=== PATIENT | female | born 1980 | race Caucasian/White ===

== ENCOUNTER → 2021-02-08 | Outpatient (CLI) | payer OTHER ==
[~2021-02-08] MED LIST: CEPH500C PO; NAPR550T2 PO; OXYC5TAB71 PO; SULF-222 PO; TRAM50TA2 PO
--- NOTE | 2021-02-08 16:35 | Diagnostic Imaging Report ---
INDICATION: Routine screening. COMPARISON: No prior mammograms are available for comparison. This is a baseline study. TECHNIQUE: 2D and 3D bilateral screening mammography was performed with CAD. FINDINGS: Scattered fibroglandular densities are identified bilaterally. There is a prominent density in the lower central right breast. Additional views would be recommended. The left breast is unremarkable. No malignant-appearing microcalcifications are seen. The axillae are unremarkable. IMPRESSION: Right breast density. Additional views are recommended for further evaluation. ACR BI-RADS Category 0: Incomplete. (Needs additional imaging evaluation). Result letter will be mailed to the patient. Note: At least 10% of breast cancer is not imaged by mammography. Dictated by: Dictated on workstation # [id number]
== END ==
LOC: RAD 15:45
PROVIDERS: ATTEND Obstetrics & Gynecology
DX: Z12.31 Encounter for screening mammogram for malignant neoplasm of breast (principal); R92.8 Other abnormal and inconclusive findings on diagnostic imaging of breast
CPT/HCPCS: 77063; 77067

== ENCOUNTER → 2021-02-15 | Outpatient (CLI) | payer OTHER ==
--- NOTE | 2021-02-15 11:13 | Diagnostic Imaging Report ---
EXAMINATION: Unilateral diagnostic right mammogram with CAD. INDICATION: Abnormal screening mammogram. FINDINGS: The baseline screening mammogram performed on 02/08/2021 noted a prominent density in the lower central right breast. The compression views of this area in the CC and MLO projections show that the density persists. This finding is also somewhat visualized on the true lateral view. This could represent either a solid or cystic mass. I would recommend that ultrasound be performed for further study. IMPRESSION: Ultrasound would be recommended for further evaluation of the nodular density in the 6 o'clock position of the right breast. ACR BI-RADS Category 0: Incomplete. (Needs additional imaging evaluation). Result letter will be mailed to the patient. Note: At least 10% of breast cancer is not imaged by mammography. Dictated by: Dictated on workstation # [id number]
--- NOTE | 2021-02-15 12:36 | Diagnostic Imaging Report ---
EXAMINATION: Ultrasound of the right breast limited. INDICATION: Abnormal mammogram. FINDINGS: The diagnostic mammogram performed earlier today noted that there was a persistent rounded area of increased density in the 6 o'clock position of the right breast. This finding had been initially identified on the baseline screening mammogram of 02/08/2021. On this study, there is a suggestion of a collection of small cysts in this area with internal echoes. These cysts may be complicated by infection and/or hemorrhage as they do contain internal echoes.. There is also some shadowing of the fibroglandular tissue in this area although it is difficult to identify a discrete mass. There is no increased vascularity to suggest malignancy either. Even so, it may prove worthwhile to obtain an MRI breast exam for a more sensitive evaluation of this portion of the right breast. No other abnormality is noted. IMPRESSION: There appear to be several small complicated cysts in the 6 o'clock position of the right breast. There is also some altered echogenicity of the fibroglandular tissue in this region. Considerations and recommendations as above. These results were discussed Dr. Latonia Guerra. ACR BI-RADS Category 0: Incomplete. (Needs additional imaging evaluation). Result letter will be mailed to the patient. Note: At least 10% of breast cancer is not imaged by mammography. Dictated by: Dictated on workstation # [id number]
== END ==
LOC: RAD 09:15
PROVIDERS: ATTEND Obstetrics & Gynecology
DX: R92.2 Inconclusive mammogram (principal)
CPT/HCPCS: 76642; 77065; G0279

== ENCOUNTER → 2021-02-23 | Outpatient (CLI) | payer OTHER ==
[~2021-02-23] MED LIST changes: +GADOBUTROL 15 MMOL/15 ML (GADAVIST) VIAL IV ONE
--- NOTE | 2021-02-23 10:56 | Diagnostic Imaging Report ---
EXAMINATION: MRI BREAST BILAT W W/O CON INDICATION: Problem solving MRI. Further evaluation of indeterminate findings as seen in the right breast on recent mammogram and breast ultrasound exams. TECHNIQUE: Utilizing a 1.5 Chel magnet, the patient was placed in the prone position with a dedicated breast coil in place. Axial STIR, T2 fat sat, T1 and T1 fat-sat images are obtained without contrast. Postcontrast high-resolution dynamic images are also obtained. Pre and post contrasted images are then evaluated with [employer] for evaluation of possible angiogenesis. 9 mL of Gadavist gadolinium contrast material was administered intravenously. COMPARISON: Screening mammogram performed on 02/08/2021 and images obtained during diagnostic right mammogram and right breast ultrasound performed on 02/15/2021. FINDINGS: RIGHT BREAST: The breast is composed of scattered fibroglandular tissue. There is minimal background parenchymal enhancement. There is no suspicious mass or non-mass enhancement. In the 6:00 breast at middle depth, there is a linear configuration of round/oval T2 hyperintense structures that corresponds with findings on mammogram and ultrasound and felt to be related to fibrocystic change and/or mild duct ectasia. This demonstrates no suspicious enhancement on postcontrast imaging. There is no axillary or internal mammary adenopathy. LEFT BREAST: The breast is composed of scattered fibroglandular tissue. There is minimal background parenchymal enhancement. There is focal mild enhancement in the skin of the 5:00 breast at middle depth approximately 7 cm from the nipple (image 175 series [id number]). There is no focal fluid collection or other abnormality in the underlying breast parenchyma. There is no suspicious mass or non-mass enhancement in the breast parenchyma. There is no axillary or internal mammary adenopathy. IMPRESSION: There is fibrocystic change and/or duct ectasia in the 6:00 right breast, corresponding with findings on recent mammogram and ultrasound exams. This demonstrates no suspicious enhancement and is considered benign. There is no MR evidence of malignancy in either breast. Incidentally noted focal enhancement in the skin of the 5:00 left breast may represent a sebaceous cyst and can be correlated with physical exam. BI-RADS Category 2: Benign RECOMMENDATIONS: Continued annual screening mammogram, which will be due in January,. Dictated by: Dictated on workstation # [id number]
== END ==
LOC: RAD 08:00
PROVIDERS: ATTEND Obstetrics & Gynecology
DX: R92.2 Inconclusive mammogram (principal)
CPT/HCPCS: 77049